=== PATIENT | female | born 1990 | race Caucasian/White ===

== ENCOUNTER 2021-12-25 12:35 | Outpatient (CLI) | payer OTHER | END 2021-12-25 13:37 | disposition home or self-care (01) | LOC: LAB 12:35 | DX: Z20.822 Contact with and (suspected) exposure to COVID-19 (principal) ==

== ENCOUNTER → 2022-03-12 12:20 | Outpatient (CLI) | payer OTHER | END | disposition home or self-care (01) | LOC: LAB 12:20 | DX: Z20.822 Contact with and (suspected) exposure to COVID-19 (principal) ==